=== PATIENT | male | born 1980 | race Caucasian/White ===

== ENCOUNTER 2017-07-18 14:51 | Emergency (ER) | payer MEDICARE, MEDICAID ==
[~2017-07-18] VITALS: Ht 175.3 cm; Wt 90.7 kg
--- NOTE | 2017-07-18 14:55 | NUR ---
CAME TO ER C/O PAIN ON URINATION, CREAMY DISCHARGES. A/OX 4. BREATHING EVEN AND UNLABORED. NO SOB. VITALS STABLE. SAFETY AND COMFORT MEASURES IN PLACE. AWAITING MD ORDERS.
[2017-07-18] MEDS ORDERED: AZITHROMYCIN 250 MG TABLET ONE (15:09)
[2017-07-18] MEDS ORDERED: CEFTRIAXONE 500 MG VIAL ONE (15:09)
[2017-07-18] MEDS ORDERED: LIDOCAINE /MPF 1% VIAL 5 ML VIAL ONE (15:10)
[2017-07-18] MEDS ORDERED: ACETAMINOPHEN 325 MG TABLET ONE (15:20)
[2017-07-18] MEDS ORDERED: IBUPROFEN 600 MG TABLET PO ONE ×2 (15:20→15:30)
--- NOTE | 2017-07-18 15:23 | NUR ---
PATIENT MEDICATED PER MD ORDERS.
[2017-07-18] MEDS ORDERED: AZITHROMYCIN 100 MG/5 ML BOTTLE PO ONE (15:30)
[2017-07-18] MEDS ORDERED: ACETAMINOPHEN 650 MG/20.3 ML UDC PO ONE (15:30)
[2017-07-18] MEDS ORDERED: CEFTRIAXONE 500 MG VIAL IM ONE (15:30)
[2017-07-18 15:40] VITALS: BP 126/64
--- NOTE | 2017-07-18 15:40 | NUR ---
Patient discharged to home in stable condition. Written and verbal after care instructions given. Patient verbalizes understanding of instruction.
== END 2017-07-18 15:40 | disposition home or self-care (01) ==
LOC: ER 14:55
DX: N48.89 Other specified disorders of penis (principal); F17.200 Nicotine dependence, unspecified, uncomplicated
CPT/HCPCS: 96372; 99284; A4606; J0696; J3490; Z7610

== ENCOUNTER 2019-10-03 11:55 | Emergency (ER) | payer SELFPAY ==
[~2019-10-03] VITALS: Ht 177.8 cm; Wt 90.7 kg
--- NOTE | 2019-10-03 11:57 | NUR ---
CALLED IN ED. NO RESPONSE
[2019-10-03] MEDS ORDERED: KETOROLAC TROMETHAMINE INJ 60 MG/2 ML VIAL IM ONE (12:30)
[2019-10-03] MEDS ORDERED: KETOROLAC TROMETHAMINE INJ 30 MG/ML VIAL ONE (13:12)
[2019-10-03] MEDS ORDERED: METHOCARBAMOL (500MG) 500 MG TABLET ONE (13:40)
--- NOTE | 2019-10-03 13:51 | NUR ---
PT GIVEN PAIN MED PER MDORDER VSS
--- NOTE | 2019-10-03 13:51 | NUR ---
PT. VERBALIZED UNDERSTANDING OF AFTERCARE INSTRUCTIONS.Patient discharged to home in stable condition. Written and verbal after care instructions given. Patient verbalizes understanding of instruction.
[2019-10-03 13:54] VITALS: BP 152/79
[2019-10-03] MEDS ORDERED: METHOCARBAMOL (750MG) 750 MG TABLET PO SCH (14:00)
== END 2019-10-03 13:55 | disposition home or self-care (01) ==
LOC: ER 11:55
DX: S30.0XXA Contusion of lower back and pelvis, initial encounter (principal); M25.511 Pain in right shoulder; M62.830 Muscle spasm of back; F17.200 Nicotine dependence, unspecified, uncomplicated; Z60.2 Problems related to living alone; W18.39XA Other fall on same level, initial encounter; Y93.89 Activity, other specified; Y92.89 Other specified places as the place of occurrence of the external cause; Y99.8 Other external cause status
CPT/HCPCS: 72100; 73030; 96372; 99283; J1885

== ENCOUNTER 2020-02-07 17:30 | Emergency (ER) | payer MEDICAID ==
[~2020-02-07] VITALS: Ht 175.3 cm; Wt 79.8 kg
[2020-02-07 17:37] VITALS: BP 154/90
[2020-02-07] MEDS ORDERED: AMOXICILLIN TRIHYDRATE 250 MG CAPSULE ONE (17:54)
--- NOTE | 2020-02-07 17:59 | NUR ---
Patient discharged to home in stable condition. Written and verbal after care instructions given. Patient verbalizes understanding of instruction.
[2020-02-07] MEDS ORDERED: AMOXICILLIN TRIHYDRATE 500 MG CAPSULE PO ONE (18:00)
== END 2020-02-07 17:58 | disposition home or self-care (01) ==
LOC: ER 17:32
DX: K04.7 Periapical abscess without sinus (principal); R22.0 Localized swelling, mass and lump, head; Z59.0 Homelessness; Z60.2 Problems related to living alone

== ENCOUNTER 2020-03-13 02:35 | Emergency (ER) | payer MEDICAID ==
[~2020-03-13] VITALS: Ht 175.3 cm; Wt 90.7 kg
[2020-03-13 02:44] VITALS: BP 153/85
--- NOTE | 2020-03-13 02:47 | NUR ---
PT CAME TO THE ED C/O DYSURIA AND YELLOW DISCHARGE X 1 DAY. PT AAOX4, RESPIRATIONS EVEN AND UNLABORED ON RA W/ NAD NOTED. PT CONNECTED TO THE MONITOR AND POX
[2020-03-13] MEDS ORDERED: AZITHROMYCIN 250 MG TABLET PO ONE (03:00)
[2020-03-13] MEDS ORDERED: CEFTRIAXONE 500 MG VIAL IM ONE (03:00)
[2020-03-13] MEDS ORDERED: LIDOCAINE /MPF 1% VIAL 5 ML VIAL ONE (03:06)
[2020-03-13] MEDS ORDERED: AZITHROMYCIN 250 MG TABLET ONE (03:07)
[2020-03-13] MEDS ORDERED: CEFTRIAXONE 500 MG VIAL ONE (03:07)
== END 2020-03-13 03:35 | disposition home or self-care (01) ==
LOC: ER 02:37
DX: A64 Unspecified sexually transmitted disease (principal); Z60.2 Problems related to living alone
CPT/HCPCS: 96372; 99283; J0696; J3490

== ENCOUNTER 2020-05-17 23:53 | Emergency (ER) | payer MEDICAID, OTHER ==
[~2020-05-17] VITALS: Ht 177.8 cm; Wt 90.7 kg
[2020-05-18 00:17] VITALS: BP 134/78
[2020-05-18] MEDS ORDERED: CEFTRIAXONE 1 G VIAL ONE (00:58)
[2020-05-18] MEDS ORDERED: LIDOCAINE /MPF 1% VIAL 5 ML VIAL ONE (00:59)
[2020-05-18] MEDS ORDERED: AZITHROMYCIN 250 MG TABLET ONE (00:59)
[2020-05-18] MEDS ORDERED: CEFTRIAXONE 1 G VIAL IM ONE (01:00)
[2020-05-18] MEDS ORDERED: AZITHROMYCIN 250 MG TABLET PO ONE (01:00)
[2020-05-18 01:08] LABS: APPEARANCE,URINE CLOUDY (CLEAR); BILIRUBIN,URINE NEGATIVE (NEGATIVE); BLOOD, URINE TRACE-INTA Ery/uL (NEGATIVE); COLOR,URINE YELLOW (YELLOW); KETONES,URINE NEGATIVE (NEGATIVE); LEUKOCYTE ESTERASE ,URINE SMALL (NEGATIVE); NITRITE, URINE NEGATIVE (NEGATIVE); PROTEIN,URINE NEGATIVE (NEGATIVE); UGLUCOSE NEGATIVE (NEGATIVE); UROBILINOGEN,URINE 0.2 EU/dL (0.2)
[2020-05-18 01:11] LABS: BACTERIA,URINE Few /HPF (None Seen); RBC,URINE 0-2 /HPF (0-2); SQUAMOUS EPITHELIAL CELL,UR Rare /HPF (None Seen); WBC,URINE TOO NUMEROUS TO COUN /HPF (0-3)
--- NOTE | 2020-05-18 01:13 | NUR ---
Patient discharged to home in stable condition. Written and verbal after care instructions given. Patient verbalizes understanding of instruction.
== END 2020-05-18 01:13 | disposition home or self-care (01) ==
LOC: ER 23:57
DX: A74.9 Chlamydial infection, unspecified (principal); Z60.2 Problems related to living alone
CPT/HCPCS: 81001; 87077; 87086; 96372; 99283; J0696; J3490; 81000-TC

== ENCOUNTER 2021-01-05 04:51 | Emergency (ER) | payer OTHER ==
[~2021-01-05] VITALS: Ht 175.3 cm; Wt 90.7 kg
[2021-01-05 05:30] VITALS: BP 140/77
[2021-01-05] MEDS ORDERED: LIDOCAINE /MPF 1% VIAL 5 ML VIAL ONE (05:42)
[2021-01-05] MEDS ORDERED: CEFTRIAXONE 500 MG VIAL ONE (05:42)
[2021-01-05 05:45] LABS: BILIRUBIN,URINE SMALL (NEGATIVE); COLOR,URINE YELLOW (YELLOW); LEUKOCYTE ESTERASE ,URINE Trace (NEGATIVE); NITRITE, URINE Negative (NEGATIVE); PH,URINE 5.5 (5.0-8.0); PROTEIN,URINE Negative (NEGATIVE); UGLUCOSE Negative (NEGATIVE); UROBILINOGEN,URINE 0.2 EU/dL (0.2)
[2021-01-05 06:00] LABS: BACTERIA,URINE Moderate /HPF (None Seen); SQUAMOUS EPITHELIAL CELL,UR Few /HPF (None Seen); WBC,URINE 81-100 /HPF (0-3)
[2021-01-05] MEDS ORDERED: CEFTRIAXONE 500 MG VIAL IM ONE (06:00)
[2021-01-05] MEDS ORDERED: CEFTRIAXONE 1GM BAG (ER ONLY) 1 GM/50 ML PIGGYBACK IV ONE (06:00)
[2021-01-05 06:01] LABS: CALCIUM OXALATE CRYSTALS,UR Many /HPF (None Seen)
[2021-01-05] MEDS ORDERED: DOXY100T2 PO (06:05)
== END 2021-01-05 06:10 | disposition home or self-care (01) ==
LOC: ER 04:51
DX: A64 Unspecified sexually transmitted disease (principal); F17.200 Nicotine dependence, unspecified, uncomplicated; Z60.2 Problems related to living alone; Z79.899 Other long term (current) drug therapy
CPT/HCPCS: 81001; 87086; 87491; 87591; 96372; 99283; J0696; J3490

== ENCOUNTER 2021-04-29 04:10 | Emergency (ER) | payer MEDICARE, OTHER ==
[~2021-04-29] VITALS: Ht 175.3 cm; Wt 99.8 kg
[~2021-04-29 04:10] MED LIST: DOXY100T2 PO
--- NOTE | 2021-04-29 04:25 | NUR ---
PATIENT BIBSELF C/O YELLOWISH DISCHARGE FROM [facility]CE YESTERDAY. FOR THE PAST 4 DAYS PT HAS BURNING SENSATION WHEN PEEING. PATIENT IS A/O X 4, RR EVEN AND UNLABORED, NO SOB NOTED. PATIENT CONNECTED TO SHAKER REPAIRER AND POX.
--- NOTE | 2021-04-29 04:31 | NUR ---
urine sent to lab
[2021-04-29] MEDS ORDERED: METRONIDAZOLE 500 MG TABLET ONE (04:39)
[2021-04-29] MEDS ORDERED: AZITHROMYCIN 250 MG TABLET ONE (04:39)
[2021-04-29] MEDS ORDERED: IBUPROFEN 400 MG TABLET ONE (04:39)
[2021-04-29] MEDS ORDERED: CEFTRIAXONE 500 MG VIAL ONE (04:39)
[2021-04-29] MEDS ORDERED: LIDOCAINE /MPF 1% VIAL 5 ML VIAL ONE (04:43)
[2021-04-29 04:55] LABS: BILIRUBIN,URINE SMALL (NEGATIVE); COLOR,URINE YELLOW (YELLOW); LEUKOCYTE ESTERASE ,URINE Small (NEGATIVE); NITRITE, URINE Negative (NEGATIVE); PH,URINE 5.5 (5.0-8.0); PROTEIN,URINE 30 mg/dl (NEGATIVE); UGLUCOSE Negative (NEGATIVE); UROBILINOGEN,URINE 0.2 EU/dL (0.2)
[2021-04-29] MEDS ORDERED: AZITHROMYCIN 250 MG TABLET PO ONE (05:00)
[2021-04-29] MEDS ORDERED: CEFTRIAXONE 500 MG VIAL IM ONE (05:00)
[2021-04-29] MEDS ORDERED: IBUPROFEN 400 MG TABLET PO ONE (05:00)
[2021-04-29] MEDS ORDERED: METRONIDAZOLE 500 MG TABLET PO ONE (05:00)
[2021-04-29 05:38] LABS: BACTERIA,URINE Many /HPF (None Seen); SQUAMOUS EPITHELIAL CELL,UR Few /HPF (None Seen); WBC,URINE 81-100 /HPF (0-3)
[2021-04-29] MEDS ORDERED: CIPR500T5 PO (05:40)
[2021-04-29 05:54] VITALS: BP 131/67
--- NOTE | 2021-04-29 05:54 | NUR ---
Patient discharged to home in stable condition. Rx and Written and verbal after care instructions given. Patient verbalizes understanding of instruction.
== END 2021-04-29 05:55 | disposition home or self-care (01) ==
LOC: ER 04:12
DX: A64 Unspecified sexually transmitted disease (principal); N39.0 Urinary tract infection, site not specified; F17.200 Nicotine dependence, unspecified, uncomplicated; Z60.2 Problems related to living alone; Z79.899 Other long term (current) drug therapy
CPT/HCPCS: 81001; 87086; 87491; 87591; 96372; 99284; J0696; J3490

== ENCOUNTER 2021-05-20 10:42 | Emergency (ER) | payer OTHER ==
[~2021-05-20] VITALS: Ht 177.8 cm; Wt 99.8 kg
[~2021-05-20 10:42] MED LIST changes: +CIPR500T5 PO
--- NOTE | 2021-05-20 10:52 | NUR ---
The patient is , from [place], c/o left shoulder, armpit, and back means, had body massage 2 weeks ago. The patient rates pains 8/10. No apparent deformity noted. Will continue to monitor the patient.
[2021-05-20] MEDS ORDERED: CYCLOBENZAPRINE 10 MG TABLET PO ONE (11:00)
[2021-05-20] MEDS ORDERED: MORPHINE SULFATE INJ 2 MG/ML DISP.SYRIN IM ONE (11:00)
[2021-05-20] MEDS ORDERED: KETOROLAC TROMETHAMINE INJ 30 MG/ML VIAL IM ONE (11:00)
[2021-05-20] MEDS ORDERED: KETOROLAC TROMETHAMINE 15 MG/ML VIAL ONE ×2 (11:02→12:51)
[2021-05-20] MEDS ORDERED: CYCLOBENZAPRINE 10 MG TABLET ONE (11:03)
[2021-05-20] MEDS ORDERED: MORPHINE SULFATE INJ 4 MG/ML DISP.SYRIN ONE (11:03)
[2021-05-20] MEDS ORDERED: OXYC5CAP18 PO (12:49)
[2021-05-20] MEDS ORDERED: IBUP-1955 PO (12:49)
[2021-05-20] MEDS ORDERED: CYCL10TA9 PO (12:49)
[2021-05-20] MEDS ORDERED: oxyCODONE/APAP (5/325 MG) 1 UDTAB TABLET ONE (12:50)
[2021-05-20] MEDS ORDERED: KETOROLAC TROMETHAMINE INJ 60 MG/2 ML VIAL IM ONE (13:00)
[2021-05-20] MEDS ORDERED: oxyCODONE/APAP (5/325 MG) 1 UDTAB TABLET PO ONE (13:00)
--- NOTE | 2021-05-20 13:38 | NUR ---
The patient alert and oriented x4. Breathing even and unlabored. Food and po fluids provided. The patient tolerated served food/fluid well. Patient discharged to home in stable condition. Written and verbal after care instructions given. Patient verbalizes understanding of instruction.
[2021-05-20 13:39] VITALS: BP 131/82
== END 2021-05-20 13:40 | disposition home or self-care (01) ==
LOC: ER 10:46
DX: S46.092A Other injury of muscle(s) and tendon(s) of the rotator cuff of left shoulder, initial encounter (principal); F17.200 Nicotine dependence, unspecified, uncomplicated; Z60.2 Problems related to living alone; Z79.899 Other long term (current) drug therapy; X58.XXXA Exposure to other specified factors, initial encounter; Y93.89 Activity, other specified; Y92.89 Other specified places as the place of occurrence of the external cause; Y99.8 Other external cause status
CPT/HCPCS: 73030; 96372 ×2; 99284; J1885 ×2; J2270

== ENCOUNTER 2021-05-22 01:47 | Emergency (ER) | payer OTHER ==
[~2021-05-22] VITALS: Ht 177.8 cm; Wt 99.8 kg
[~2021-05-22 01:47] MED LIST changes: +CYCL10TA9 PO; +IBUP-1955 PO; +OXYC5CAP18 PO
--- NOTE | 2021-05-22 02:01 | NUR ---
PT PROVIDED WITH WARM BLANKETS.
[2021-05-22] MEDS ORDERED: TRAMADOL HCL 50 MG TABLET PO ONE (02:30)
[2021-05-22] MEDS ORDERED: KETOROLAC TROMETHAMINE INJ 30 MG/ML VIAL IM ONE (02:30)
[2021-05-22] MEDS ORDERED: CYCLOBENZAPRINE 10 MG TABLET PO ONE (02:30)
[2021-05-22] MEDS ORDERED: KETOROLAC TROMETHAMINE INJ 30 MG/ML VIAL ONE (02:32)
[2021-05-22] MEDS ORDERED: TRAMADOL HCL 50 MG TABLET ONE (02:32)
[2021-05-22] MEDS ORDERED: CYCLOBENZAPRINE 10 MG TABLET ONE (02:33)
[2021-05-22] MEDS ORDERED: TRAM-351 PO (03:04)
[2021-05-22] MEDS ORDERED: IBUP-1957 PO (03:04)
[2021-05-22] MEDS ORDERED: CYCL5TAB PO (03:04)
[2021-05-22 03:41] VITALS: BP 148/97
== END 2021-05-22 03:38 | disposition home or self-care (01) ==
LOC: ER 01:49
DX: M25.512 Pain in left shoulder (principal); F17.200 Nicotine dependence, unspecified, uncomplicated; Z60.2 Problems related to living alone; Z79.899 Other long term (current) drug therapy
CPT/HCPCS: 96372; 99283; J1885

== ENCOUNTER 2021-07-15 12:44 | Emergency (ER) | payer OTHER ==
[~2021-07-15] VITALS: Ht 175.3 cm; Wt 99.8 kg
[~2021-07-15 12:44] MED LIST changes: +CYCL5TAB PO; +IBUP-1957 PO; +TRAM-351 PO
--- NOTE | 2021-07-15 13:30 | NUR ---
BIBS FOR C/O L SIDED CHEST/ RIB AREA PAIN R/T NECK, BACK AND LLE X 60 DAYS. IN ROOM AIR AND DENIES SOB. RESPIRATION REGULAR AND UNLABORED. ATTACHED TO THE MONITOR. WILL CONTINUE TO MONITOT THE PATIENT.
[2021-07-15] MEDS ORDERED: DIAZEPAM 5 MG TABLET PO ONE (15:00)
[2021-07-15] MEDS ORDERED: MORPHINE SULFATE INJ 2 MG/ML DISP.SYRIN IM ONE (15:00)
[2021-07-15] MEDS ORDERED: DIAZEPAM 5 MG TABLET ONE (15:15)
[2021-07-15] MEDS ORDERED: MORPHINE SULFATE INJ 4 MG/ML DISP.SYRIN ONE (15:16)
[2021-07-15] MEDS ORDERED: MORPHINE SULFATE INJ 2 MG/ML DISP.SYRIN ONE (15:16)
--- NOTE | 2021-07-15 15:23 | NUR ---
TAKEN TO RADIOLOGY
--- NOTE | 2021-07-15 15:31 | NUR ---
THE PATIENT IS BACK FROM RADIOLOGY DEPT
[2021-07-15] MEDS ORDERED: CYCL5TAB PO (18:06)
[2021-07-15] MEDS ORDERED: ACET325T53 MC (18:17)
[2021-07-15 19:11] VITALS: BP 123/84
--- NOTE | 2021-07-15 19:11 | NUR ---
Patient discharged to home in stable condition. Written and verbal after care instructions given. Patient verbalizes understanding of instruction.
== END 2021-07-15 19:11 | disposition home or self-care (01) ==
LOC: ER 12:44
DX: M25.512 Pain in left shoulder (principal); F17.200 Nicotine dependence, unspecified, uncomplicated; Z60.2 Problems related to living alone; Z79.899 Other long term (current) drug therapy
CPT/HCPCS: 71046; 72040; 93005; 96372; 99284; J2270 ×2

== ENCOUNTER 2021-07-27 03:49 | Emergency (ER) | payer OTHER ==
[~2021-07-27] VITALS: Ht 177.8 cm; Wt 99.8 kg
[~2021-07-27 03:49] MED LIST changes: +ACET325T53 MC
--- NOTE | 2021-07-27 04:00 | NUR ---
PT BIBSELF C/O LEFT SHOULDER PAIN S/P MASSAGE. PT AAOX4 BREATHING EVENLY AND UNLABORED. PT ATTACHED TO MONITOR AND POX. MD AT BEDSIDE FOR EVAL. PT GIVEN BLANKET AND CALL LIGHT WITHIN REACH
--- NOTE | 2021-07-27 05:55 | NUR ---
Patient discharged to home in stable condition. Written and verbal after care instructions given. Patient verbalizes understanding of instruction. pt ambulatory with a steady gait
[2021-07-27 06:02] VITALS: BP 138/70
== END 2021-07-27 05:55 | disposition home or self-care (01) ==
LOC: ER 03:49
DX: M25.512 Pain in left shoulder (principal); M79.10 Myalgia, unspecified site; F17.200 Nicotine dependence, unspecified, uncomplicated; Z60.2 Problems related to living alone; Z79.899 Other long term (current) drug therapy
CPT/HCPCS: 73030-TC

== ENCOUNTER 2021-08-15 08:42 | Emergency (ER) | payer OTHER ==
[~2021-08-15] VITALS: Ht 175.3 cm; Wt 99.8 kg
--- NOTE | 2021-08-15 08:49 | NUR ---
TO ER BED 12, BIB SELF C/O LOWER BACK PAIN X 2 DAYS. AAOX3, BREATHING EVEN AND NON LABORED, AWAITING MD KHAN
[2021-08-15] MEDS ORDERED: DEXAMETHASONE SOLN 5 MG/5 ML UDC ONE (08:58)
[2021-08-15] MEDS ORDERED: HYDROCODONE/APAP 5/325MG TABLET ONE (08:58)
[2021-08-15] MEDS ORDERED: CYCLOBENZAPRINE 10 MG TABLET ONE (08:59)
[2021-08-15] MEDS ORDERED: CYCLOBENZAPRINE 10 MG TABLET PO ONE (09:00)
[2021-08-15] MEDS ORDERED: DEXAMETHASONE SOLN 5 MG/5 ML UDC PO ONE (09:00)
[2021-08-15] MEDS ORDERED: HYDROCODONE/APAP 5/325MG TABLET PO ONE (09:00)
[2021-08-15] MEDS ORDERED: CYCL10TA9 PO (09:42)
[2021-08-15] MEDS ORDERED: METH4TAB3 PO (09:42)
[2021-08-15] MEDS ORDERED: OXYC5CAP18 PO (09:42)
--- NOTE | 2021-08-15 09:50 | NUR ---
Patient discharged to home in stable condition. Written and verbal after care instructions given. Patient verbalizes understanding of instruction.
[2021-08-15 09:52] VITALS: BP 117/75
== END 2021-08-15 10:13 | disposition home or self-care (01) ==
LOC: ER 08:44
DX: M54.59 Other low back pain (principal); Z79.899 Other long term (current) drug therapy
CPT/HCPCS: 99284; J8540

== ENCOUNTER 2021-08-30 05:50 | Emergency (ER) | payer OTHER ==
[~2021-08-30 05:50] MED LIST changes: +METH4TAB3 PO; +MUPI22OI2 TP; +SULF1TAB48 PO
--- NOTE | 2021-08-30 06:00 | NUR ---
CALLED TO TRIAGE NO ANSWER.
--- NOTE | 2021-08-30 06:20 | NUR ---
CALLED TO TRIAGE NO ANSWER.
--- NOTE | 2021-08-30 06:45 | NUR ---
LAST CALL FOR TRIAGE NO ANSWER
== END 2021-08-30 06:48 | disposition left against medical advice (07) ==
LOC: ER 05:50
DX: Z53.21 Procedure and treatment not carried out due to patient leaving prior to being seen by health care provider (principal)

== ENCOUNTER 2021-08-30 08:41 | Emergency (ER) | payer OTHER ==
[~2021-08-30] VITALS: Ht 175.3 cm; Wt 90.7 kg
--- NOTE | 2021-08-30 08:41 | NUR ---
BIBS C/O CHIN REDNESS AND PAIN S/P PICKING ON IT, ALREADY ON ANTIBIOTIC FROM PREVIOUS VISIT 2 DAYS AGO. VITALS ARE WITHIN NORMAL LIMITS. BREATHING IS EVEN AND UNLABORED, NO SOB NOTED.
--- NOTE | 2021-08-30 08:51 | NUR ---
SEEN BY DR FISCHER
[2021-08-30 08:52] VITALS: BP 117/76
[2021-08-30] MEDS ORDERED: IBUPROFEN 600 MG TABLET PO ONE (09:00)
[2021-08-30] MEDS ORDERED: IBUPROFEN 600 MG TABLET ONE (09:03)
--- NOTE | 2021-08-30 09:05 | NUR ---
PROVIDED FOOD PER PT REQUEST, TOLERATED WELL
--- NOTE | 2021-08-30 09:44 | NUR ---
Patient discharged to home in stable condition. Written and verbal after care instructions given. Patient verbalizes understanding of instruction.
== END 2021-08-30 09:45 | disposition home or self-care (01) ==
LOC: ER 08:43
DX: L08.9 Local infection of the skin and subcutaneous tissue, unspecified (principal); G89.29 Other chronic pain; F17.200 Nicotine dependence, unspecified, uncomplicated; Z59.00 Homelessness unspecified; Z60.2 Problems related to living alone; Z79.899 Other long term (current) drug therapy

== ENCOUNTER 2021-09-02 12:25 | Emergency (ER) | payer OTHER ==
[~2021-09-02] VITALS: Ht 177.8 cm; Wt 90.7 kg
[2021-09-02 12:36] VITALS: BP 144/76
--- NOTE | 2021-09-02 12:36 | NUR ---
PT BIB SELF C/O PROBLEM URINATING STARTED YESTDERDAY "I THINK I AM RETAINING URINE." PT A/OX4. TOLERATING R/A WELL WITH NO SOB
--- NOTE | 2021-09-02 12:38 | NUR ---
AT BEDSIDE FOR EVAL.
--- NOTE | 2021-09-02 12:48 | NUR ---
URINE SPECIMEN COLLECTED AND SENT TO LAB.
[2021-09-02 13:14] LABS: BILIRUBIN,URINE NEGATIVE (NEGATIVE); COLOR,URINE YELLOW (YELLOW); LEUKOCYTE ESTERASE ,URINE NEGATIVE (NEGATIVE); NITRITE, URINE NEGATIVE (NEGATIVE); PROTEIN,URINE NEGATIVE (NEGATIVE); UGLUCOSE NEGATIVE (NEGATIVE); UROBILINOGEN,URINE 0.2 EU/dL (0.2)
[2021-09-02] MEDS ORDERED: CEFTRIAXONE 500 MG VIAL ONE (13:57)
[2021-09-02] MEDS ORDERED: LIDOCAINE /MPF 1% VIAL 5 ML VIAL ONE (13:58)
[2021-09-02] MEDS ORDERED: CEFTRIAXONE 500 MG VIAL IM ONE (14:00)
[2021-09-02] MEDS ORDERED: DOXY100C2 PO (14:14)
--- NOTE | 2021-09-02 14:24 | NUR ---
Patient discharged to home in stable condition. Written and verbal after care instructions given. Patient verbalizes understanding of instruction.
== END 2021-09-02 14:25 | disposition home or self-care (01) ==
LOC: ER 12:52
DX: Z20.2 Contact with and (suspected) exposure to infections with a predominantly sexual mode of transmission (principal); R30.0 Dysuria; G89.29 Other chronic pain; M54.9 Dorsalgia, unspecified; F17.290 Nicotine dependence, other tobacco product, uncomplicated; Z59.00 Homelessness unspecified; Z79.899 Other long term (current) drug therapy; Z79.1 Long term (current) use of non-steroidal anti-inflammatories (NSAID); Z79.2 Long term (current) use of antibiotics
CPT/HCPCS: 81003; 87491; 87591; 96372; 99283; J0696; J3490

== ENCOUNTER 2021-09-06 07:55 | Emergency (ER) | payer OTHER ==
[~2021-09-06] VITALS: Ht 175.3 cm; Wt 90.7 kg
[~2021-09-06 07:55] MED LIST changes: +DOXY100C2 PO
--- NOTE | 2021-09-06 08:05 | NUR ---
BIB C/O RIGHT LOWER ABDOMINAL PAIN. VITALS ARE WITHIN NORMAL LIMITS. BREATHING IS REGULAR AND UNLABORED.
--- NOTE | 2021-09-06 08:17 | NUR ---
URINE COLLECTED AND SENT TO LAB
--- NOTE | 2021-09-06 08:20 | NUR ---
PT DECLINEDS LABS AND GETTING A CT, SAID THE PAIN WENT AWAY
--- NOTE | 2021-09-06 08:39 | NUR ---
Patient discharged to home in stable condition. Written and verbal after care instructions given. Patient verbalizes understanding of instruction.
[2021-09-06 08:45] VITALS: BP 138/74
[2021-09-06 10:34] LABS: BILIRUBIN,URINE NEGATIVE (NEGATIVE); COLOR,URINE YELLOW (YELLOW); LEUKOCYTE ESTERASE ,URINE NEGATIVE (NEGATIVE); NITRITE, URINE NEGATIVE (NEGATIVE); PROTEIN,URINE TRACE mg/dl (NEGATIVE); UGLUCOSE NEGATIVE (NEGATIVE); UROBILINOGEN,URINE 0.2 EU/dL (0.2)
[2021-09-06 11:24] LABS: BACTERIA,URINE None seen /HPF (None Seen); RBC,URINE 0-2 /HPF (0-2); SQUAMOUS EPITHELIAL CELL,UR Rare /HPF (None Seen); WBC,URINE NONE SEEN /HPF (0-3)
== END 2021-09-06 08:46 | disposition home or self-care (01) ==
LOC: ER 07:59
DX: R10.31 Right lower quadrant pain (principal); Z60.2 Problems related to living alone; Z79.2 Long term (current) use of antibiotics; Z79.891 Long term (current) use of opiate analgesic; Z79.52 Long term (current) use of systemic steroids; Z79.1 Long term (current) use of non-steroidal anti-inflammatories (NSAID)
CPT/HCPCS: 81001; 87086-TC

== ENCOUNTER 2021-09-09 06:24 | Emergency (ER) | payer OTHER ==
[~2021-09-09] VITALS: Ht 177.8 cm; Wt 90.7 kg
--- NOTE | 2021-09-09 06:39 | NUR ---
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 PATIENT STATED, NON RADIATING PAIN. PATIENT NOTED PAIN STARTED AFTER BECOMING ANXIOUS. PATIENT IS A/O X 4, RR EVEN AND UNLABORED, NO SOB NOTED. PATIENT CONNECTED TO CARDIAC AND POX MONITOR.
--- NOTE | 2021-09-09 07:14 | NUR ---
PT REFUSED BLOOD DRAW.
--- NOTE | 2021-09-09 07:44 | NUR ---
Patient does not wish to proceed with medical care recommended by Dr. Batres. Patient given information related to possible complications, up to and including , which could occur as a result of leaving the hospital at this time. Patient verbalizes understanding of risks involved due to leaving against medical advice. Patient has signed AMA form.
[2021-09-09 07:45] VITALS: BP 142/81
== END 2021-09-09 07:46 | disposition left against medical advice (07) ==
LOC: ER 06:31
DX: R07.89 Other chest pain (principal); F41.8 Other specified anxiety disorders; R00.2 Palpitations; R00.0 Tachycardia, unspecified; Z79.2 Long term (current) use of antibiotics; Z79.1 Long term (current) use of non-steroidal anti-inflammatories (NSAID); Z79.899 Other long term (current) drug therapy
CPT/HCPCS: 71045-TC

== ENCOUNTER 2022-03-28 06:31 | Emergency (ER) | payer OTHER ==
[~2022-03-28] VITALS: Ht 177.8 cm; Wt 99.8 kg
--- NOTE | 2022-03-28 06:45 | NUR ---
TO ER BED 2. BIBSELF C/O ABSCESS UNDER LEFT ARMPIT AND RIGHT GROIN AREA . PT IS ALERT AND ORIENTED. AMBULATORY WITH STEADY GAIT. BREATHING IS EVEN AND NONLABORED. CONNECTED TO MONITOR. AWAITING MD KHAN
[2022-03-28] MEDS ORDERED: LIDOCAINE 1%-EPI 1:100,000 50 ML VIAL IJ ONE (07:00)
[2022-03-28] MEDS ORDERED: IBUPROFEN 400 MG TABLET PO ONE (07:30)
[2022-03-28] MEDS ORDERED: LIDOCAINE 1%-EPI 1:100,000 20 ML VIAL ONE (07:37)
[2022-03-28] MEDS ORDERED: IBUPROFEN 400 MG TABLET ONE (07:59)
[2022-03-28] MEDS ORDERED: IBUP-1957 PO (08:39)
[2022-03-28] MEDS ORDERED: CEPH500C2 PO (08:39)
[2022-03-28] MEDS ORDERED: SULF1TAB48 PO (08:39)
--- NOTE | 2022-03-28 08:51 | NUR ---
I&D DONE AT BEDSIDE
--- NOTE | 2022-03-28 09:30 | NUR ---
Patient discharged to home in stable condition. Written and verbal after care instructions given. Patient verbalizes understanding of instruction.
[2022-03-28 09:42] VITALS: BP 125/88
== END 2022-03-28 09:35 | disposition home or self-care (01) ==
LOC: ER 06:31
DX: L02.214 Cutaneous abscess of groin (principal); L02.412 Cutaneous abscess of left axilla; Z60.2 Problems related to living alone; Z79.899 Other long term (current) drug therapy
CPT/HCPCS: 99284; 10061; J3490 ×2; A6403 ×2; A6407

== ENCOUNTER 2022-04-04 12:12 | Emergency (ER) | payer OTHER ==
[~2022-04-04] VITALS: Ht 177.8 cm; Wt 63.5 kg
[~2022-04-04 12:12] MED LIST changes: +CEPH500C2 PO
[2022-04-04 12:42] VITALS: BP 116/75
[2022-04-13] MEDS ORDERED: TRAM50TA2 PO (10:44)
[2022-04-13] MEDS ORDERED: AMOX-430 PO (10:44)
[2022-04-13] MEDS ORDERED: DOXY-326 PO (10:44)
== END 2022-04-04 14:39 ==
LOC: ER 12:13
DX: B34.9 Viral infection, unspecified (principal); R61 Generalized hyperhidrosis; Z20.822 Contact with and (suspected) exposure to COVID-19
CPT/HCPCS: 99283; 87426; C9803

== ENCOUNTER 2022-04-10 15:25 | Inpatient (IN) | payer OTHER ==
[~2022-04-10] VITALS: Ht 177.8 cm; Wt 90.7 kg
--- NOTE | 2022-04-10 15:33 | NUR ---
BIB SELF C/O SCROTUM, REDNESS, PAIN, AND FEVER X 1 DAY, HAS HAD ABSCESS X 4 DAYS. PT POPPED PIMPLE ON L SIDE 4 DAYS AGO. AAOX4, BREATHING EVEN AND UNLABORED, SKIN WARM TO TOUCH. TEMP 100.6. ON MONITOR, WILL CONTINUE TO MONITOR.
[2022-04-10] MEDS ORDERED: CEFTRIAXONE 1GM BAG (ER ONLY) 50 ML IV ONE ×2 (16:00→16:01)
[2022-04-10] MEDS ORDERED: IV NS 0.9% 1,000 ML BAG IV ONE ×3 (16:00→18:00)
[2022-04-10] MEDS ORDERED: ACETAMINOPHEN ES 500 MG TABLET PO ONE (16:00)
[2022-04-10] MEDS ORDERED: KETOROLAC TROMETHAMINE INJ 30 MG/ML VIAL IV ONE (16:00)
[2022-04-10] MEDS ORDERED: ACETAMINOPHEN ES 500 MG TABLET ONE (16:02)
[2022-04-10] MEDS ORDERED: KETOROLAC TROMETHAMINE INJ 30 MG/ML VIAL ONE (16:02)
--- NOTE | 2022-04-10 16:15 | NUR ---
COVID SAMPLE OBTAINED AND SENT TO LAB
--- NOTE | 2022-04-10 16:25 | NUR ---
STEAM TABLE ATTENDANT AT BEDSIDE
[2022-04-10 16:26] LABS: BASOPHILS % (AUTO) 0.1 % (0.0-2.0); EOSINOPHILS % (AUTO) 0.2 % (0.0-6.0); HEMATOCRIT 41 % (39-51); HEMOGLOBIN 13.7 g/dL (13.5-17.5); LYMPHOCYTES # (AUTO) 1.4 K/uL (0.8-4.8); LYMPHOCYTES % (AUTO) 7.9 % (20.0-44.0); MEAN CORPUSCULAR HGB CONC 33 g/dl (31.0-36.0); MEAN CORPUSCULAR VOLUME 87 fL (80-96); MONOCYTES % (AUTO) 5.6 % (2.0-12.0); NEUTROPHILS # (AUTO) 14.9 K/uL (1.8-8.9); NEUTROPHILS % (AUTO) 86.2 % (43.0-81.0); PLATELET COUNT (AUTO) 202 K/uL (150-450); RED BLOOD CELL COUNT(AUTO) 4.73 MIL/uL (4.5-6.0); WHITE BLOOD COUNT (AUTO) 17.2 K/uL (4.3-11.0)
[2022-04-10 16:38] LABS: BILIRUBIN,URINE SMALL (NEGATIVE); COLOR,URINE DARK YELLOW (YELLOW); LEUKOCYTE ESTERASE ,URINE SMALL (NEGATIVE); NITRITE, URINE NEGATIVE (NEGATIVE); PH,URINE 6.5 (5.0-8.0); PROTEIN,URINE 30 mg/dl (NEGATIVE); UGLUCOSE NEGATIVE (NEGATIVE)
[2022-04-10 16:40] LABS: CALCIUM, SERUM 8.7 mg/dL (8.5-10.1); CARBON DIOXIDE 26 mmol/L (21-32); CHLORIDE 100 mmol/L (98-107); CREATININE 1.2 mg/dL (0.6-1.3); GLUCOSE 115 mg/dL (74-106); POTASSIUM 3.8 mmol/L (3.5-5.1); SODIUM SERUM 134 mmol/L (136-145); UREA NITROGEN, BLOOD 15 mg/dL (7-18)
[2022-04-10 16:52] LABS: ALBUMIN 3.3 g/dL (3.4-5.0)
[2022-04-10 16:59] LABS: BACTERIA,URINE Many /HPF (None Seen); SQUAMOUS EPITHELIAL CELL,UR Few /HPF (None Seen); WBC,URINE 21-50 /HPF (0-3)
[2022-04-10 17:22] LABS: ALANINE AMINOTRANSFERASE 32 U/L (12-78); ALKALINE PHOSPHATASE 74 U/L (46-116); ASPARTATE AMINOTRANSFERASE 21 U/L (15-37); BILIRUBIN,DIRECT 0.2 mg/dL (0.0-0.2); BILIRUBIN,TOTAL 0.8 mg/dL (0.2-1.0)
--- NOTE | 2022-04-10 17:45 | NUR ---
CALLED NURSING SUP REGARDING PT BED
[2022-04-10] MEDS ORDERED: HYDROCODONE/APAP 10/325MG TABLET ONE (18:14)
[2022-04-10] MEDS ORDERED: ONDANSETRON HCL/PF 4 MG/2 ML VIAL IVP PRN (18:30)
[2022-04-10] MEDS ORDERED: Z GUARD REMEDY 4 OZ OINT TP PRN (18:30)
[2022-04-10] MEDS ORDERED: MAGNESIUM HYDROXIDE 30 ML UDC PO PRN (18:30)
[2022-04-10] MEDS ORDERED: ZOLPIDEM TARTRATE 5 MG TABLET PO PRN (18:30)
[2022-04-10] MEDS ORDERED: HYDROCODONE/APAP 10/325MG TABLET PO ONE (18:30)
[2022-04-10] MEDS ORDERED: MAG HYDROX/AL HYDROX/SIMETH 30 ML UDC PO PRN (18:30)
[2022-04-10 20:00] VITALS: BP 100/58
[2022-04-10] MEDS ORDERED: VANCOMYCIN 1.25 GM in IV D5W 250 ML IV ONE (20:00)
--- NOTE | 2022-04-10 20:12 | NUR ---
REPORT GIVEN TO 3W RN FOR DORA
[2022-04-10] MEDS ORDERED: VANCOMYCIN 500 MG VIAL ONE (20:13)
[2022-04-10] MEDS ORDERED: VANCOMYCIN 1 GM VIAL ONE (20:14)
--- NOTE | 2022-04-10 20:34 | NUR ---
PT TRANSFERRING TO 3W VIA HOSPITAL PROTOCOL. VSS. ALL BELONGINGS WITH PT. GAVE 3W RN VANCOMYCIN AND ENDORSED DORA.
[2022-04-10] MEDS: IV NS 0.9% 1,000 ML IV PRN (20:56)
[2022-04-10 21:00] VITALS: BP 100/58
--- NOTE | 2022-04-10 21:20 | NUR ---
ADMITTED A 41 Y/O MALE PATIENT FROM ER VIA RNEY WITH IV ACCESS AT RFA G # 18, PATENT AND FLUSHING WELL. A & O X 4. COVID NEGATIVE. AFEBRILE. ON RA. NO SOB. NO DISTRESS. TRANSFERRED TO BED SAFELY, COMPLETE BODY ASSESSMENT DONE. SCROTUM REDNESS, TENDERNESS AND WARM TO TOUCH NOTED. PICTURE TAKEN. PATIENT IS AMBULATORY, STEADY GAIT. ALL BELONGINGS CHECKED AND RECORDED. ALL SAFETY MEASURES IN PLACE. HOB ELEVATED. CALL LIGHT WITHIN REACH. BED ON LOWEST POSITION AND LOCKED. WILL CLOSELY MONITOR AND CONTINUE PLAN OF CARE.
[2022-04-10] MEDS: PIPERACILLIN /TAZOBACTAM 3.375 G in IV D5W 100 ML IV SCH (21:50)
--- NOTE | 2022-04-10 21:50 | NUR ---
PATIENT WENT OUT FOR SMOKE BREAK AND CAME BACK AFTER SIGNING THE SMOKING CONSENT FORM. CNC LATHE PROGRAMMER ACCOMPANIED THE PATIENT. CHARGE NURSE MADE AWARE.
[2022-04-10] MEDS: ACETAMINOPHEN 325 MG TABLET PO PRN (23:57)
--- NOTE | 2022-04-10 23:59 | NUR ---
RN NOTE: PAIN PATIENT C/O SCROTUM PAIN AND WANTED TO TAKE PAIN MEDICINE. PRN TYLENOL 650 MG PO ADMINISTERED. WILL CONTINUE TO MONITOR FOR ANY CHANGE OF CONDITION.
[2022-04-11] MEDS ORDERED: PIPERACILLIN /TAZOBACTAM 3.375 G in IV D5W 50 ML IV SCH ×2
[2022-04-11] MEDS: MORPHINE SULFATE INJ 2 MG/ML DISP.SYRIN IV PRN ×5 (03:36→21:23)
--- NOTE | 2022-04-11 03:38 | NUR ---
RN NOTE: PAIN PATIENT C/O SCROTUM PAIN 05/12 AND REQUESTED PAIN INJECTION, MORPHINE 2 MG IV ADMINISTERED ORDERED BY MD. WILL REASSESS.
[2022-04-11] MEDS: PIPERACILLIN /TAZOBACTAM 3.375 G in IV D5W 100 ML IV SCH ×3 (05:07→21:23)
[2022-04-11 06:22] LABS: MAGNESIUM 2.2 mg/dL (1.8-2.4); PHOSPHORUS 2.6 mg/dL (2.5-4.9); POTASSIUM 3.8 mmol/L (3.5-5.1)
[2022-04-11 06:29] LABS: BASOPHILS % (AUTO) 0.2 % (0.0-2.0); HEMATOCRIT 35 % (39-51); HEMOGLOBIN 11.8 g/dL (13.5-17.5); LYMPHOCYTES # (AUTO) 1.6 K/uL (0.8-4.8); MEAN CORPUSCULAR HGB CONC 33 g/dl (31.0-36.0); MEAN CORPUSCULAR VOLUME 87 fL (80-96); MONOCYTES # (AUTO) 0.8 K/uL (0.1-1.30); MONOCYTES % (AUTO) 5.9 % (2.0-12.0); NEUTROPHILS # (AUTO) 10.7 K/uL (1.8-8.9); NEUTROPHILS % (AUTO) 80.9 % (43.0-81.0); PLATELET COUNT (AUTO) 165 K/uL (150-450); RED BLOOD CELL COUNT(AUTO) 4.06 MIL/uL (4.5-6.0); WHITE BLOOD COUNT (AUTO) 13.2 K/uL (4.3-11.0)
--- NOTE | 2022-04-11 07:03 | NUR ---
MS RN OPENING NOTES RECEIVED PATIENT ASLEEP IN BED, A/Ox4, ON ROOM AIR NO S/S OF RESPIRATORY DISTRESS. IV ACCESS R FA #18G RUNNING NS @75 ML/HR. INTACT AND PATENT, NO S/S OF INFILTRATION. AMBULATORY WITH STEADY GAIT. CONTINENT HAS BATHROOM PRIVILEGE. NO S/S OF PAIN OR DISCOMFORT. PATIENT HAS SCROTUM SWELLING AND REDNESS. SAFETY MEASURES IN PLACE: BED LOCKED AND IN LOWEST POSITION, CALL LIGHT WITHIN REACH, SIDE RAILS UPx2. WILL CONTINUE TO MONITOR.
[2022-04-11 08:00] VITALS: BP 116/69
[2022-04-11] MEDS: VANCOMYCIN 1 GM in IV D5W 250 ML IV SCH ×2 (08:52→20:02)
--- NOTE | 2022-04-11 08:52 | NUR ---
WOUND CARE CONSULT: PT PRESENTS WITH VERY RED SWOLLEN SCROTUM WITH TINY AREA OF PURULENT DRAINAGE, PRESENT ON ADMISSION. RECOMMEND SURGICAL CONSULT. DR NAVJOT CHANG CALLED. DISCUSSED WITH NURSING STAFF AND INDUSTRIAL/ORGANIZATIONAL PSYCHOLOGIST.
--- NOTE | 2022-04-11 08:53 | NUR ---
RN NOTES PATIENT COMPLAINED OF PAIN /, PRN MORPHINE GIVEN @0853, WILL CONTINUE TO MONITOR.
[2022-04-11 12:00] VITALS: BP 131/73
--- NOTE | 2022-04-11 13:17 | NUR ---
RN NOTES PATIENT COMPLAINED OF PAIN 10/10, PRN MORPHINE GIVEN @1314, WILL CONTINUE TO MONITOR.
[2022-04-11 16:00] VITALS: BP 129/72
[2022-04-11 16:01] VITALS: BP 129/72
--- NOTE | 2022-04-11 17:50 | NUR ---
RN NOTES PATIENT COMPLAINED OF PAIN 10/10, PRN MORPHINE GIVEN @1720, WILL CONTINUE TO MONITOR.
--- NOTE | 2022-04-11 18:36 | NUR ---
MS RN CLOSING NOTES PATIENT RESTING IN BED, A/Ox4, STABLE ON ROOM AIR NO S/S OF RESPIRATORY DISTRESS. IV ACCESS R HAND #22G RUNNING NS @75 ML/HR. INTACT AND PATENT, NO S/S OF INFILTRATION. AMBULATORY WITH STEADY GAIT. CONTINENT HAS BATHROOM PRIVILEGE. NO S/S OF PAIN OR DISCOMFORT. PATIENT HAS SCROTUM SWELLING AND REDNESS. SAFETY MEASURES MAINTAINED: BED LOCKED AND IN LOWEST POSITION, CALL LIGHT WITHIN REACH, SIDE RAILS UPx2. WILL ENDORSE TO NEXT SHIFT ANY DORA.
--- NOTE | 2022-04-11 19:30 | NUR ---
RN NOTES RECEIVED PT AWAKE IN BED, COMPLAINING OF UNRELIEVED PAIN. NO DISTRESS NOTED WILL CONTINUE TO MONITOR.
--- NOTE | 2022-04-11 19:55 | NUR ---
RN NOTES PT COMPLAINED OF UNRELIEVED PAIN. DR. ORELLANA MADE AWARE AND ORDERED TORADOL 30 MG IV Q8HRS PRN.
[2022-04-11 20:00] VITALS: BP 126/61
[2022-04-11] MEDS ORDERED: KETOROLAC TROMETHAMINE INJ 30 MG/ML VIAL IV PRN (20:00)
--- NOTE | 2022-04-11 21:23 | NUR ---
RN NOTES ADMINISTERED MORPHINE FOR PAIN PER MD ORDER. VS WNL. WILL CONTINUE TO MONITOR.
[2022-04-12] MEDS: PIPERACILLIN /TAZOBACTAM 3.375 G in IV D5W 100 ML IV SCH ×3 (04:18→20:30)
[2022-04-12 07:15] LABS: CALCIUM, SERUM 8.7 mg/dL (8.5-10.1); CREATININE 0.9 mg/dL (0.6-1.3)
--- NOTE | 2022-04-12 07:15 | NUR ---
RN CLOSING NOTES PT STABLE. NO DISTRESS NOTED. ALL ORDERS CARRIED OUT. TREATED PAIN THROUGHOUT SHIFT. REPORT GIVEN TO DAYSHIFT RN.
--- NOTE | 2022-04-12 07:50 | NUR ---
MS RN OPENING NOTE Patient in bed, awake. A/O x 4. On room air, breathing evenly and unlabored. No SOB or s/s of distress noted. IV access on Right hand#22 currently infusing Zosyn at 25 ml/hr, to resume NS at 75 ml/hr when IV antibiotic is done. Safety precautions in place: bed in low, locked position; siderails up x 2; call light within reach. will continue to monitor.
[2022-04-12] MEDS: VANCOMYCIN 1 GM in IV D5W 250 ML IV SCH (08:55)
[2022-04-12] MEDS: MORPHINE SULFATE INJ 2 MG/ML DISP.SYRIN IV PRN ×2 (10:12→19:40)
--- NOTE | 2022-04-12 10:12 | NUR ---
RN NOTE Patient complained of pain on the scrotum, 10/10 on pain scale. PRN Morphine 2 mg given. Will continue to monitor.
[2022-04-12] MEDS: VANCOMYCIN 1.25 GM in IV D5W 250 ML IV SCH ×2 (15:39→16:12)
[2022-04-12 16:10] VITALS: BP 120/79
--- NOTE | 2022-04-12 19:29 | NUR ---
MS RN CLOSING NOTE Patient in bed, resting. A/O x 4, able to make needs known. stable on room air, breathing evenly and unlabored. No SOB or s/s of distress noted. IV access on Right hand#22 infusing NS at 75 ml/hr. Due meds given. all needs attended to. Safety precautions maintained: bed in low, locked position; siderails up x 2; call light within reach. Will endorse to retail shift manager nurse for DORA.
--- NOTE | 2022-04-12 19:30 | NUR ---
RN OPENING NOTES RECEIVED PT IN BED, AWAKE. NO DISTRESS NOTED. WILL CONTINUE TO MONITOR.
[2022-04-12] MEDS: IV NS 0.9% 1,000 ML IV PRN (19:40)
--- NOTE | 2022-04-12 19:41 | NUR ---
RN NOTES ADMINISTERED MORPHINE FOR PAIN PER MD ORDER. VS WNL. WILL CONTINUE TO MONITOR.
[2022-04-12 20:54] VITALS: BP 104/60
[2022-04-13] MEDS: VANCOMYCIN 1.25 GM in IV D5W 250 ML IV SCH (00:18)
[2022-04-13] MEDS: PIPERACILLIN /TAZOBACTAM 3.375 G in IV D5W 100 ML IV SCH ×2 (04:02→13:00)
--- NOTE | 2022-04-13 07:00 | NUR ---
RN CLOSING NOTES PT IN BED, ASLEEP, AWAKENS TO VERBAL STIMULI. NO DISTRESS NOTED. TREATED PAIN THROUGHOUT SHIFT. WILL ENDORSE TO ONCOMING SHIFT FOR DORA.
--- NOTE | 2022-04-13 07:49 | NUR ---
MS RN OPENING NOTE Patient in bed, asleep. A/O x 4. On room air, breathing evenly and unlabored. No SOB or s/s of distress noted. IV access on LFA #20 infusing NS at 75 ml/hr. Safety precautions in place: bed in low, locked position; siderails up x 2; call light within reach. Will continue to monitor.
[2022-04-13 08:19] VITALS: BP 108/60
[2022-04-13] MEDS ORDERED: AMOX-430 PO (10:44)
[2022-04-13] MEDS ORDERED: TRAM50TA2 PO (10:44)
[2022-04-13] MEDS ORDERED: DOXY-326 PO (10:44)
--- NOTE | 2022-04-13 13:04 | NUR ---
RN NOTE Patient is going to be discharged and going to be picked up at 1400. Verified with pharmacy, Zosyn IV not given. Patient to go home with PO antibiotics.
[2022-04-13] MEDS: ACETAMINOPHEN 325 MG TABLET PO PRN (13:41)
--- NOTE | 2022-04-13 17:00 | NUR ---
RN NOTE Received order for discharge. Patient is A/O x 4, able to make needs known. Stable on room air, breathing evenly and unlabored. No SOB or s/s of distress noted. Discharge instructions given, verbalized understanding. Eric rodarte was supposed to pickling grader patient at 1400, did not arrive. CM arranged for an ambulance pickling grader. Exitcare folder given to patient. All belongings accounted for, belonging sheet signed. Patient was adamant of going home; refused photo of scrotum to be taken. Patient left in stable condition via ambulance with 2 seismic computer present. Addendum: 04/13/22 at 1826 by KATINA ERNST RN CORRECTION: DISCHARGE NOTE ADD: IV access removed, catheter tip intact. Pressure dressing applied, no signs of bleeding noted.
== END 2022-04-13 16:45 | disposition home or self-care (01) | DRG 720 ==
LOC: ER 15:33 → TRANSITION 19:47 → TELE 19:56 → MED 04-11 10:17
PROVIDERS: ADMIT Nurse Practitioner Acute Care; ATTEND Nurse Practitioner Acute Care
DX: A41.9 Sepsis, unspecified organism (principal); F17.210 Nicotine dependence, cigarettes, uncomplicated; I86.1 Scrotal varices; N45.1 Epididymitis; Z20.822 Contact with and (suspected) exposure to COVID-19; Z91.19 Patient's noncompliance with other medical treatment and regimen
CPT/HCPCS: 36415; 71045-TC; 76870-TC; 80048-TC; 80076-TC; 80202-TC; 81001; 83605-TC; 83735-TC; 84100-TC; 85025-TC; 85730-TC; 86592; 86593; 86803; 87040-TC; 87070-TC; 87081-TC; 87086-TC; 87491; 87536; 87591; 87806; C9803; G0378; J0696; J1885; J2270; J2543; J3370; J7030; J7050; J7060

== ENCOUNTER 2022-07-31 15:00 | Emergency (ER) | payer OTHER ==
[~2022-07-31] VITALS: Ht 177.8 cm; Wt 99.8 kg
[~2022-07-31 15:00] MED LIST changes: -ACET325T53 MC; +AMOX-430 PO; -CEPH500C2 PO; -CIPR500T5 PO; -CYCL10TA9 PO; -CYCL5TAB PO; +DOXY-326 PO; -DOXY100C2 PO; -DOXY100T2 PO; -IBUP-1955 PO; -IBUP-1957 PO; -METH4TAB3 PO; -MUPI22OI2 TP; -OXYC5CAP18 PO; -SULF1TAB48 PO; -TRAM-351 PO; +TRAM50TA2 PO
[2022-07-31 15:28] VITALS: BP 136/98
[2022-07-31] MEDS ORDERED: CEFTRIAXONE 500 MG VIAL IM ONE (16:33)
[2022-07-31 16:37] LABS: BILIRUBIN,URINE NEGATIVE (NEGATIVE); COLOR,URINE YELLOW (YELLOW); LEUKOCYTE ESTERASE ,URINE 1+ (NEGATIVE); NITRITE, URINE NEGATIVE (NEGATIVE); PROTEIN,URINE NEGATIVE (NEGATIVE); UGLUCOSE NEGATIVE (NEGATIVE); UROBILINOGEN,URINE 0.2 EU/dL (0.2)
[2022-07-31] MEDS ORDERED: CEFTRIAXONE 500 MG VIAL ONE (16:41)
[2022-07-31] MEDS ORDERED: LIDOCAINE /MPF 1% VIAL 5 ML VIAL ONE (16:41)
[2022-07-31] MEDS ORDERED: DOXY100T2 PO (16:42)
--- NOTE | 2022-07-31 16:53 | NUR ---
seen and evaluated. medicated as ordered. see emar.
[2022-07-31 17:15] LABS: BACTERIA,URINE Few /HPF (None Seen); SQUAMOUS EPITHELIAL CELL,UR Rare /HPF (None Seen); WBC,URINE 51-80 /HPF (0-3)
[2022-07-31 17:16] LABS: CALCIUM OXALATE CRYSTALS,UR Few /HPF (None Seen); SPERM,URINE Few /HPF (None Seen)
== END 2022-07-31 16:55 | disposition home or self-care (01) ==
LOC: ER 15:02
DX: R36.9 Urethral discharge, unspecified (principal); R30.0 Dysuria; A64 Unspecified sexually transmitted disease; F17.200 Nicotine dependence, unspecified, uncomplicated; Z60.2 Problems related to living alone; Z79.899 Other long term (current) drug therapy
CPT/HCPCS: 99283; 96372; 81001; 87491; 87591; J0696; J3490

== ENCOUNTER 2022-12-01 12:39 | Emergency (ER) | payer OTHER ==
[~2022-12-01] VITALS: Ht 175.3 cm; Wt 91.2 kg
[~2022-12-01 12:39] MED LIST changes: +DOXY100T2 PO
[2022-12-01] MEDS ORDERED: HYDROCODONE/APAP 10/325MG TABLET PO ONE (13:30)
[2022-12-01] MEDS ORDERED: SULFAMETH/TRIMETH 800/160 MG 1 UDTAB TABLET PO ONE (13:30)
--- NOTE | 2022-12-01 13:32 | NUR ---
PT IN BED 6 HAS PAIN IN THE NOSE FROM TY KHAN SHOWS POSSIBLE INFECTION. BLANKETS PROVIDED.
[2022-12-01] MEDS ORDERED: HYDROCODONE/APAP 10/325MG TABLET ONE (13:35)
[2022-12-01] MEDS ORDERED: SULFAMETH/TRIMETH 800/160 MG 1 UDTAB TABLET ONE (13:36)
[2022-12-01] MEDS ORDERED: TRAM50TA2 PO (14:39)
[2022-12-01] MEDS ORDERED: SULF1TAB48 PO (14:40)
[2022-12-01 15:02] VITALS: BP 154/86
== END 2022-12-01 15:02 | disposition home or self-care (01) ==
LOC: ER 12:56
DX: J34.89 Other specified disorders of nose and nasal sinuses (principal); I10 Essential (primary) hypertension; F17.200 Nicotine dependence, unspecified, uncomplicated; Z60.2 Problems related to living alone

== ENCOUNTER 2023-01-18 19:10 | Emergency (ER) | payer OTHER ==
[~2023-01-18] VITALS: Ht 177.8 cm; Wt 108.9 kg
[~2023-01-18 19:10] MED LIST changes: +SULF1TAB48 PO
--- NOTE | 2023-01-18 19:30 | NUR ---
[id number] FROM HOME FOR POSTERIOR HEAD PAIN S/P MECHANICAL TRIP AND FALL. Pt stated he smoke meth 2 hrs after.
--- NOTE | 2023-01-18 19:35 | NUR ---
Pt in bed.MD at bedside.
[2023-01-18] MEDS ORDERED: ACETAMINOPHEN ES 500 MG TABLET ONE (19:39)
--- NOTE | 2023-01-18 19:40 | NUR ---
Pt to CT via wheel chair.
[2023-01-18] MEDS ORDERED: ACETAMINOPHEN ES 500 MG TABLET PO ONE (20:00)
--- NOTE | 2023-01-18 21:38 | NUR ---
Patient discharged to home in stable condition. Written and verbal after care instructions given. Patient verbalizes understanding of instruction.
[2023-01-18 21:44] VITALS: BP 112/75
== END 2023-01-18 21:40 | disposition home or self-care (01) ==
LOC: ER 19:23
DX: S09.90XA Unspecified injury of head, initial encounter (principal); F17.200 Nicotine dependence, unspecified, uncomplicated; Z60.2 Problems related to living alone; W01.10XA Fall on same level from slipping, tripping and stumbling with subsequent striking against unspecified object, initial encounter; Y93.89 Activity, other specified; Y92.89 Other specified places as the place of occurrence of the external cause; Y99.8 Other external cause status
CPT/HCPCS: 70450-TC

== ENCOUNTER 2025-06-20 15:39 | Emergency (ER) | payer OTHER ==
[~2025-06-20] VITALS: Ht 177.8 cm; Wt 99.8 kg
[2025-06-20] MEDS ORDERED: ONDANSETRON 4 MG TAB.RAPDIS ONE (16:31)
[2025-06-20] MEDS: ONDANSETRON 4 MG TAB.RAPDIS SL ONE (16:34)
[2025-06-20 16:39] LABS: BARBITURATE, URINE NEGATIVE (NEGATIVE); BENZODIAZEPINE, URINE NEGATIVE (NEGATIVE); COCCAINE, URINE NEGATIVE (NEGATIVE); OPIATE, URINE NEGATIVE (NEGATIVE)
[2025-06-20 17:00] LABS: AMPHETAMINE, URINE POSITIVE (NEGATIVE); CANNABINOID, URINE POSITIVE (NEGATIVE)
[2025-06-20] MEDS ORDERED: NALO4SPR BNOSTRILS (17:26)
[2025-06-20 17:44] VITALS: BP 165/70; TEMP 97.9; O2SAT 100
== END 2025-06-20 17:45 | disposition home or self-care (01) ==
LOC: ER 15:39
DX: T40.2X1A Poisoning by other opioids, accidental (unintentional), initial encounter (principal); F17.200 Nicotine dependence, unspecified, uncomplicated; Z60.2 Problems related to living alone; Y92.89 Other specified places as the place of occurrence of the external cause
CPT/HCPCS: 99284; 93005; 80307; Q0162